=== PATIENT | female | born 2000 | race Caucasian/White ===

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

== ENCOUNTER → 2020-03-29 | Outpatient (REF) | payer BC | LOC: M WUC 10:09 | PROVIDERS: ATTEND Physician Assistant | DX: R35.0 Frequency of micturition (principal) ==

== ENCOUNTER → 2020-03-29 | Outpatient (CLI) | payer BC | LOC: M LABSMTC 14:07 | PROVIDERS: ATTEND Family Medicine | DX: Z11.59 Encounter for screening for other viral diseases (principal) | CPT/HCPCS: C9803; U0003 ==

== ENCOUNTER → 2020-07-30 | Outpatient (CLI) | payer BC ==
[~2020-07-30] MED LIST: PROHANCE 279.3MG/ML 5ML VIAL As Ordered ONE
--- NOTE | 2020-07-30 19:30 | REPVR ---
PROCEDURE INFORMATION: Exam: MR Head Without and With Contrast Exam date and time: 07/30/2020 4:39 PM Age: 19 years old Clinical indication: Visual disturbance; Additional info: AMBRIZ, vision loss RT eye TECHNIQUE: Imaging protocol: MR of the head without and with intravenous contrast. Contrast material: PROHANCE; Contrast volume: 10 ml; Contrast route: INTRAVENOUS (IV); COMPARISON: No relevant prior studies available. FINDINGS: Brain: No restricted diffusion to suggest acute infarction. No demyelinating lesions are apparent. There is no acute intracranial hemorrhage. No enhancing lesions are seen in the brain parenchyma or leptomeninges. Cerebral ventricles: No ventriculomegaly. Bones/joints: Unremarkable. Paranasal sinuses: Normal as visualized. No acute sinusitis. Mastoid air cells: Normal as visualized. No mastoid effusion. Orbits: Normal appearance of the orbits. Soft tissues: Unremarkable. IMPRESSION: No acute intracranial findings. Electronically signed by: Louann Dolan On 07/30/2020 19:30:42 PM
--- NOTE | 2020-07-30 19:40 | REPVR ---
PROCEDURE INFORMATION: Exam: MR Orbit Without and With Contrast Exam date and time: 07/30/2020 4:40 PM Age: 19 years old Clinical indication: Visual changes or disturbances; Transient loss of vision; Additional info: AMBRIZ, vision loss RT eye TECHNIQUE: Imaging protocol: MR Orbit was performed without and with intravenous contrast. 3D rendering (Not supervised by radiologist): MIP and/or 3D reconstructed images were created by the technologist. Contrast material: PROHANCE; Contrast volume: 10 ml; Contrast route: INTRAVENOUS (IV); COMPARISON: No relevant prior studies available. FINDINGS: Orbits: The globes are symmetric. There is no dilatation of the optic nerve sheaths. The optic nerves appear symmetric. The optic nerves appear to enhance symmetrically. No abnormality is seen in the intra or extraconal fat. The extraocular muscles appear symmetric. Paranasal sinuses: Unremarkable. No air-fluid levels. Soft tissues: IMPRESSION: Normal appearance of the orbits. Electronically signed by: Louann Dolan On 07/30/2020 19:40:32 PM
== END ==
LOC: M RAD 16:36
PROVIDERS: ATTEND Ophthalmology
DX: R51.9 Headache, unspecified (principal); H53.121 Transient visual loss, right eye
CPT/HCPCS: 70543; 70553; A9576

== ENCOUNTER → 2020-09-23 | Outpatient (REF) | payer BC | LOC: M LAB REF 16:17 | PROVIDERS: ATTEND Physician Assistant Medical | DX: N94.10 Unspecified dyspareunia (principal) ==

== ENCOUNTER → 2020-11-05 | Outpatient (CLI) | payer SELFPAY | LOC: M LABSMTC 11:54 | PROVIDERS: ATTEND Pediatrics | DX: Z20.822 Contact with and (suspected) exposure to COVID-19 (principal) ==

== ENCOUNTER → 2021-10-28 | Outpatient (REF) | payer BC | LOC: M SFHCWAGY 17:27 | PROVIDERS: ATTEND Advanced Practice Midwife | DX: Z12.4 Encounter for screening for malignant neoplasm of cervix (principal); R87.619 Unspecified abnormal cytological findings in specimens from cervix uteri ==

== ENCOUNTER 2022-12-20 15:03 | Emergency (ER) | payer BC ==
[~2022-12-20] VITALS: Ht 160 cm; Wt 48.9 kg
[2022-12-20] MEDS ORDERED: NS 1,000 ML IV ONE (16:50)
[2022-12-20] MEDS ORDERED: ACETAMINOPHEN 1000MG 100ML IV BAG IV ONE (16:50)
[2022-12-20 17:29] LABS: BASO % 0.3 % (0.0-1.0); EOS % 0.4 % (0.0-3.0); HEMATOCRIT 37.4 % (36.0-47.0); HEMOGLOBIN 12.8 g/dl (12.0-15.5); LYMPH # 1.6 10^3/uL (1.5-5.0); LYMPH % 21.8 % (24.0-44.0); MEAN CORPUSCULAR HEMOGLOBIN 29.7 pg (27.0-33.0); MEAN CORPUSCULAR HGB CONC 34.2 g/dl (32.0-36.5); MEAN CORPUSCULAR VOLUME 86.8 fl (80.0-96.0); MONO # 0.6 10^3/uL (0.0-0.8); MONO % 7.6 % (2.0-8.0); NEUTROPHILS # 5.2 10^3/uL (1.5-8.5); NEUTROPHILS % 69.5 % (36.0-66.0); PLATELET COUNT, AUTOMATED 184 10^3/uL (150-450); RED BLOOD COUNT 4.31 10^6/uL (4.00-5.40); WHITE BLOOD COUNT 7.5 10^3/uL (4.0-10.0)
[2022-12-20 19:42] LABS: APPEARANCE, URINE HAZY (CLEAR); BACTERIA, URINE AUTO NEGATIVE (NEGATIVE); BILIRUBIN, URINE AUTO NEGATIVE (NEGATIVE); BLOOD, URINE BLOOD NEGATIVE (NEGATIVE); COLOR, URINE YELLOW (YELLOW); GLUCOSE, URINE (UA) AUTO NEGATIVE (NEGATIVE); KETONE, URINE AUTO NEGATIVE (NEGATIVE); LEUKOCYTE ESTERASE, URINE AUTO TRACE (NEGATIVE); NITRITE, URINE AUTO NEGATIVE (NEGATIVE); PROTEIN, URINE AUTO NEGATIVE (NEGATIVE); RBC, URINE AUTO 1 /HPF (0-3); SPECIFIC GRAVITY URINE AUTO 1.015 (1.002-1.035); SQUAMOUS EPITHELIAL CELL UR AU 3 /HPF (0-6); UROBILINOGEN, URINE AUTO 0.2 mg/dL (0.0-2.0); WBC, URINE AUTO 1 /HPF (0-3)
[2022-12-20 20:12] VITALS: BP 112/63
== END 2022-12-20 20:15 | disposition home or self-care (01) ==
LOC: M ED 15:03
DX: O99.891 Other specified diseases and conditions complicating pregnancy (principal); R10.9 Unspecified abdominal pain; Z3A.00 Weeks of gestation of pregnancy not specified; Z88.5 Allergy status to narcotic agent
CPT/HCPCS: 76801; 80047; 81001; 84702; 85025; 86901; 87086; 96374; 99284; J0131

== ENCOUNTER → 2023-01-10 | Outpatient (CLI) | payer BC ==
[2023-01-10 14:01] LABS: HEMATOCRIT 41.5 % (36.0-47.0); HEMOGLOBIN 13.5 g/dl (12.0-15.5); MEAN CORPUSCULAR HEMOGLOBIN 28.5 pg (27.0-33.0); MEAN CORPUSCULAR HGB CONC 32.5 g/dl (32.0-36.5); MEAN CORPUSCULAR VOLUME 87.6 fl (80.0-96.0); PLATELET COUNT, AUTOMATED 226 10^3/uL (150-450); RED BLOOD COUNT 4.74 10^6/uL (4.00-5.40); WHITE BLOOD COUNT 7.1 10^3/uL (4.0-10.0)
[2023-01-10 14:54] LABS: HIV 1&2 SCREEN CENTAUR NEGATIVE (NEGATIVE)
[2023-01-10 15:23] LABS: GC DNA AMPLIFICATION NEGATIVE (NEGATIVE)
== END ==
LOC: M PLALAB 10:49
PROVIDERS: ATTEND Advanced Practice Midwife
DX: Z34.01 Encounter for supervision of normal first pregnancy, first trimester (principal)

== ENCOUNTER → 2023-03-16 | Outpatient (REF) | payer BC | LOC: M PLALAB 14:05 | PROVIDERS: ATTEND Advanced Practice Midwife | DX: Z34.02 Encounter for supervision of normal first pregnancy, second trimester (principal) ==

== ENCOUNTER → 2023-04-06 | Outpatient (CLI) | payer BC | LOC: M WHC 09:29 | PROVIDERS: ATTEND Obstetrics & Gynecology | DX: Z34.92 Encounter for supervision of normal pregnancy, unspecified, second trimester (principal) ==

== ENCOUNTER → 2023-05-31 | Outpatient (CLI) | payer BC ==
[2023-05-31 15:39] LABS: HEMATOCRIT 37.3 % (36.0-47.0); MEAN CORPUSCULAR HEMOGLOBIN 29.1 pg (27.0-33.0); MEAN CORPUSCULAR HGB CONC 32.2 g/dl (32.0-36.5); MEAN CORPUSCULAR VOLUME 90.3 fl (80.0-96.0); PLATELET COUNT, AUTOMATED 181 10^3/uL (150-450); RED BLOOD COUNT 4.13 10^6/uL (4.00-5.40); WHITE BLOOD COUNT 8.2 10^3/uL (4.0-10.0)
== END ==
LOC: M PLALAB 10:29
PROVIDERS: ATTEND Obstetrics & Gynecology
DX: Z34.92 Encounter for supervision of normal pregnancy, unspecified, second trimester (principal)

== ENCOUNTER → 2023-07-19 | Outpatient (REF) | payer BC | LOC: M PLALAB 11:15 | PROVIDERS: ATTEND Advanced Practice Midwife | DX: Z34.80 Encounter for supervision of other normal pregnancy, unspecified trimester (principal) ==

== ENCOUNTER 2023-07-30 15:12 | Outpatient (CLI) | payer BC ==
[~2023-07-30] VITALS: Ht 160 cm; Wt 62.3 kg
[2023-07-30 15:36] VITALS: BP 114/65
[2023-07-30] MEDS ORDERED: PNV1TABL16 PO (15:40)
[2023-07-30] MEDS ORDERED: FLUCONAZOLE 50MG TABLET PO ONE (16:10)
== END 2023-07-30 16:09 | disposition home or self-care (01) ==
LOC: M LDO 15:12
PROVIDERS: ATTEND Advanced Practice Midwife
DX: O23.593 Infection of other part of genital tract in pregnancy, third trimester (principal); B37.9 Candidiasis, unspecified; Z3A.37 37 weeks gestation of pregnancy
CPT/HCPCS: 59025; 76815; G0463

== ENCOUNTER 2023-08-24 16:55 | Inpatient (IN) | payer BC ==
[~2023-08-24] VITALS: Ht 160 cm; Wt 65.0 kg
[~2023-08-24 16:55] MED LIST changes: +PNV1TABL16 PO; -PROHANCE 279.3MG/ML 5ML VIAL As Ordered ONE
[2023-08-24] MEDS ORDERED: TUMS500C PO (17:21)
[2023-08-24 17:25] VITALS: BP 123/72; O2SAT 98
[2023-08-24] MEDS ORDERED: HOME MED LIST COMPLETE! XX SCH (17:25)
[2023-08-24] MEDS ORDERED: METHYLERGONOVINE MALEATE 0.2MG/ML 1ML VIAL IM PRN (17:35)
[2023-08-24] MEDS ORDERED: LIDOCAINE 1% MDV 20ML VIAL INFIL PRN (17:35)
[2023-08-24] MEDS ORDERED: TRANEXAMIC ACID INJection 1,000 MG in NS 100 ML IV PRN (17:35)
[2023-08-24] MEDS ORDERED: CARBOPROST TROMETHAMINE 250 MCG/ML AMP IM PRN (17:35)
[2023-08-24 17:56] LABS: HEMATOCRIT 39.1 % (36.0-47.0); HEMOGLOBIN 12.8 g/dl (12.0-15.5); MEAN CORPUSCULAR HEMOGLOBIN 27.2 pg (27.0-33.0); MEAN CORPUSCULAR HGB CONC 32.7 g/dl (32.0-36.5); MEAN CORPUSCULAR VOLUME 83.2 fl (80.0-96.0); PLATELET COUNT, AUTOMATED 196 10^3/uL (150-450)
[2023-08-24 19:32] VITALS: BP 109/60
[2023-08-24] MEDS: miSOPROStol 50MCG 1/2 TABLET PO SCH ×2 (19:32→23:42)
[2023-08-24 20:04] VITALS: BP 117/72
[2023-08-24 20:32] VITALS: BP 115/67
[2023-08-24 21:32] VITALS: BP 99/56
[2023-08-24 23:41] VITALS: BP 105/55
[2023-08-25] VITALS (78 sets, daily range): BP systolic 86–158; BP diastolic 45–91
[2023-08-25] MEDS ORDERED: PROMETHAZINE 25MG/ML 1ML VIAL IV ONE ×2 (00:45→06:00)
[2023-08-25] MEDS ORDERED: NALBUPHINE HCL 1MG/0.1ML (100MG/10ML) MDV IV ONE ×2 (01:00→06:00)
[2023-08-25] MEDS: miSOPROStol 50MCG 1/2 TABLET PO SCH (03:48)
[2023-08-25] MEDS ORDERED: OXYTOCIN DRIP 30 UNITS in IV 1 EA IV SCH (07:55)
[2023-08-25] MEDS: LR 1,000 ML IV SCH ×3 (09:33→13:04)
[2023-08-25] MEDS ORDERED: EPIDURAL/PCA KEYS XX PRN (10:30)
[2023-08-25] MEDS ORDERED: FENTANYL/ROPIVACAINE/NACL BAG 100 ML EPIDURAL SCH (10:30)
[2023-08-25] MEDS ORDERED: LR 500 ML IV PRN (10:30)
[2023-08-25] MEDS ORDERED: diphenhydrAMINE 50MG/ML VIAL IV PRN (10:30)
[2023-08-25] MEDS ORDERED: ONDANSETRON 4MG 2ML VIAL IV PRN (10:30)
[2023-08-25] MEDS ORDERED: NALOXONE INJ 0.4MG/1ML VIAL IV PRN (10:30)
[2023-08-25] MEDS: ePHEDrine SULFATE 25 MG/5 ML(5MG/ML) SYRINGE IVP PRN ×3 (12:07→13:21)
[2023-08-25 19:52] LABS: CORD GAS ABE V -10.5; CORD GAS HCO3 V 18.4 MMOL/L; CORD GAS PCO2 V 52.4 mmHg; CORD GAS PH V 7.164 UNITS; CORD GAS PO2 V 26.1 mmHg; CORD GAS SBC V 15.2 MMOL/L
[2023-08-25] MEDS ORDERED: METHYLERGONOVINE MALEATE 0.2 MG TAB PO PRN (20:35)
[2023-08-25] MEDS ORDERED: DIBUCAINE 1% OINTMENT 30GM TOP PRN (20:35)
[2023-08-25] MEDS ORDERED: ACETAMINOPHEN TAB 650MG DOSE (2X325MG) PO PRN (20:35)
[2023-08-25] MEDS ORDERED: DOCUSATE SODIUM 100MG CAPSULE PO PRN (20:35)
[2023-08-25] MEDS ORDERED: IBUPROFEN 600MG TAB PO PRN (20:35)
[2023-08-25] MEDS ORDERED: RHOGAM 300MCG (1500IU) INJ IM SCH (20:35)
[2023-08-25] MEDS: ACETAMINOPHEN 500 MG TAB PO PRN (20:43)
[2023-08-26 00:16] VITALS: BP 107/59; O2SAT 98
[2023-08-26] MEDS: ACETAMINOPHEN 500 MG TAB PO PRN ×3 (03:37→20:24)
[2023-08-26 05:40] VITALS: BP 110/61; O2SAT 100
[2023-08-26] MEDS: PRENATAL VITAMINS CHEWABLE TABLET PO SCH (09:19)
[2023-08-26] MEDS: IBUPROFEN 800 MG TAB PO PRN ×2 (09:20→16:42)
[2023-08-27] MEDS: IBUPROFEN 800 MG TAB PO PRN (04:04)
[2023-08-27 06:32] VITALS: BP 94/51; O2SAT 98
[2023-08-27] MEDS: PRENATAL VITAMINS CHEWABLE TABLET PO SCH (07:59)
[2023-08-27] MEDS: ACETAMINOPHEN 500 MG TAB PO PRN (08:00)
[2023-08-27] MEDS ORDERED: MEASLES,MUMPS,RUBELLA VACCINE INJ (MMR-II) SC.IMMUN ONE (09:00)
[2023-08-27] MEDS ORDERED: IBUP80TA PO (09:24)
[2023-08-27] MEDS ORDERED: ACET-683 PO (09:24)
== END 2023-08-27 13:35 | disposition home or self-care (01) | DRG 560 ==
LOC: M LDI 16:55 → M OBS 08-26 00:04
PROVIDERS: ADMIT Advanced Practice Midwife; ATTEND Advanced Practice Midwife
PROC: 3E033VJ Introduction of Other Hormone into Peripheral Vein, Percutaneous Approach (ICD-10-PCS; 2023-08-24)
PROC: 3E0DXGC Introduction of Other Therapeutic Substance into Mouth and Pharynx, External Approach (ICD-10-PCS; 2023-08-24)
PROC: 10E0XZZ Delivery of Products of Conception, External Approach (ICD-10-PCS; principal; 2023-08-25)
PROC: 0HQ9XZZ Repair Perineum Skin, External Approach (ICD-10-PCS; 2023-08-25)
PROC: 10907ZC Drainage of Amniotic Fluid, Therapeutic from Products of Conception, Via Natural or Artificial Opening (ICD-10-PCS; 2023-08-25)
DX: O48.0 Post-term pregnancy (principal); O70.0 First degree perineal laceration during delivery; Z37.0 Single live birth; Z3A.41 41 weeks gestation of pregnancy